=== PATIENT | female | born 1965 | race Caucasian/White ===

== ENCOUNTER → 2024-03-17 08:02 | Outpatient (REF) | payer BC, SELFPAY | LOC: HWWDC 08:02 | PROVIDERS: ATTENDING PHYSICIAN Obstetrics & Gynecology Gynecology; FAMILY PHYSICIAN Nurse Practitioner Adult Health | DX: Z12.31 Encounter for screening mammogram for malignant neoplasm of breast (principal) | CPT/HCPCS: 77063; 77067 ==

== ENCOUNTER → 2025-09-20 08:49 | Outpatient (REF) | payer BC, SELFPAY | LOC: HWRAD 08:49 | PROVIDERS: ATTENDING PHYSICIAN Nurse Practitioner Adult Health | DX: Z12.31 Encounter for screening mammogram for malignant neoplasm of breast (principal); Z13.820 Encounter for screening for osteoporosis | CPT/HCPCS: 77063; 77067; 77080 ==